=== PATIENT | female | born 1965 ===

== ENCOUNTER → 2018-04-14 10:22 | Outpatient (CLI) | payer OTHER ==
[~2018-04-14 10:22] MED LIST: ABILIFY20 MG PO; LEXAPRO5 MG PO; TRICOR145 MG PO; cogentin PO
== END | disposition home or self-care (01) ==
LOC: LAB 10:22
DX: N62 Hypertrophy of breast (principal)

== ENCOUNTER 2018-04-21 06:00 | Day surgery (SDC) | payer OTHER | END 2018-04-21 20:25 | disposition home or self-care (01) | LOC: CIR.AMB 06:00 | PROVIDERS: Plastic Surgery | PROC: 0HBV0ZZ Excision of Bilateral Breast, Open Approach (ICD-10-PCS; principal; 2018-04-21 07:00) | DX: D05.01 Lobular carcinoma in situ of right breast (principal); N62 Hypertrophy of breast ==

== ENCOUNTER 2021-01-16 07:14 | Day surgery (SDC) | payer OTHER ==
[~2021-01-16 07:14] MED LIST changes: +COGENT PO; +LEXAPRO PO; +TRICOR PO
== END 2021-01-16 18:50 | disposition home or self-care (01) ==
LOC: CIR.AMB 07:14
PROVIDERS: ATTEND Obstetrics & Gynecology
DX: N85.01 Benign endometrial hyperplasia (principal); Z20.822 Contact with and (suspected) exposure to COVID-19